=== PATIENT | female | born 1995 | race Caucasian/White ===

== ENCOUNTER 2017-05-26 22:37 | Emergency (ER) | payer SELFPAY ==
[2017-05-27] MEDS ORDERED: ONDANSETRON HCL INJ/PF 4 MG/2 ML SDV IV ONE (00:15)
[2017-05-27] MEDS ORDERED: NORMAL SALINE 1000 ML 1,000 ML IV ONE (00:15)
--- NOTE | 2017-05-27 00:24 | ER Document Report ---
ED General - General Chief Complaint: Abdominal Pain Stated Complaint: ABDOMINAL PAIN Time Seen by Provider: 05/27/17 00:05 TRAVEL OUTSIDE OF THE [place] IN LAST 30 DAYS: No - HPI Notes: Patient is a 21-year-old female no significant past medical history presents to the ED complaining of intermittent generalized abdominal pain, cramping, followed by nausea/vomiting 2 that began this evening. No hematemesis. Patient states that the pain does not radiate. Patient states that currently her pain has improved and it waxes and wanes. Patient states that she has had some loose stool accompanying her symptoms. Patient has been able to keep some water down, but has not tried to eat since dinner this evening. Patient states that nothing makes her pain worse or better. She denies any drug allergies. Denies any smoking or IV drug use. Denies any headache, fever, neck pain, URI, sore throat, chest pain, palpitations, syncope, cough, shortness of breath, wheeze, dyspnea, abdominal pain, nausea/vomiting/diarrhea, melena, hematochezia , vaginal discharge/odor/bleeding, pelvic cramping, urinary retention, dysuria, hematuria, loss of control of bowel or bladder, numbness/tingling, saddle anesthesia, muscle paralysis/weakness, or rash. - Related Data Allergies/Adverse Reactions: No Known Allergies Allergy (Unverified 05/26/17 22:39) Past Medical History - Social History Smoking Status: Never Smoker Frequency of alcohol use: None Family History: Reviewed & Not Pertinent Patient has suicidal ideation: No Patient has homicidal ideation: No Renal/ Medical History: Denies: Hx Peritoneal Dialysis Review of Systems - Review of Systems Notes: REVIEW OF SYSTEMS: CONSTITUTIONAL : Denies fever, chills, or sweats. Denies recent illness. EENT: Denies eye, ear, throat, or mouth pain or symptoms. Denies nasal or sinus congestion or discharge. Denies throat, tongue, or mouth swelling or difficulty swallowing. CARDIOVASCULAR: Denies chest pain. Denies palpitations or racing or irregular heart beat. Denies ankle edema. RESPIRATORY: Denies cough, cold, or chest congestion. Denies shortness of breath, difficulty breathing, or wheezing. GASTROINTESTINAL: see hpi GENITOURINARY: Denies difficulty urinating, painful urination, burning, frequency, blood in urine, or discharge. FEMALE GENITOURINARY: Denies vaginal bleeding, heavy or abnormal periods, irregular periods. Denies vaginal discharge or odor. MUSCULOSKELETAL: Denies back or neck pain or stiffness. Denies joint pain or swelling. SKIN: Denies rash, lesions or sores. NEUROLOGICAL: Denies confusion or altered mental status. Denies passing out or loss of consciousness. Denies dizziness or lightheadedness. Denies headache. Denies weakness or paralysis or loss of use of either side. Denies problems with gait or speech. Denies sensory loss, numbness, or tingling. Denies seizures. ALL OTHER SYSTEMS REVIEWED AND NEGATIVE. Dictation was performed using [employer] voice recognition software Physical Exam - Vital signs Vitals: Temp Pulse Resp BP Pulse Ox 98.3 F 82 20 150/82 H 100 05/26/17 23:03 05/26/17 23:03 05/26/17 23:03 05/26/17 23:03 05/26/17 23:03 Notes: PHYSICAL EXAMINATION: GENERAL: Well-appearing, well-nourished and in no acute distress. A&Ox4 LUNGS: Breath sounds clear to auscultation bilaterally and equal. No wheezes rales or rhonchi. HEART: Regular rate and rhythm without murmurs, rubs, gallops. ABDOMEN: Obese, Soft, nontender, nondistended abdomen. No guarding, no rebound. No masses appreciated. Normal bowel sounds present. No CVA tenderness bilaterally. Musculoskeletal: LE's b/l: FROM to passive/active. Strength 5+/5. Extremities: No cyanosis, clubbing, or edema b/l. Peripheral pulses 2+. Capillary refill less than 3 seconds. NEUROLOGICAL: Cranial nerves grossly intact. Normal speech, normal gait. Normal sensory, motor exams PSYCH: Normal mood, normal affect. SKIN: Warm, Dry, normal turgor, no rashes or lesions noted. Course - Re-evaluation Re-evalutation: 05/27/17 01:36 Patient is an afebrile, well-hydrated, 21-year-old female who presents to the ED with nausea/vomiting and intermittent abdominal cramping, suspect viral at this time. Vitals are stable. PE is otherwise unremarkable. Patient had a minimally elevated white count, but patient has been vomiting 2. Patient has not vomited while in the ED and is tolerating p.o. without any difficulties. Patient states that her symptoms have improved since arrival and she is feeling much better. Patient was given 1 L of normal saline. CMP, lipase, hcg otherwise unremarkable. UA showed wbc's and leuks, but pt is urinary asymptomatic so a culture is pending at this time. Low suspicion/risk for acute appendicitis, bowel obstruction, acute cholecystitis, acute cholangitis, perforated diverticulitis, incarcerated hernia, pancreatitis, perforated ulcer, peritonitis, sepsis, pelvic inflammatory disease, ectopic , tubo- ovarian abscess, ovarian torsion, or other systemic emergent condition at this time. Patient is aware that her condition can change from initial presentation and she needs to monitor symptoms closely and seek medical attention if any acute changes. Toradol given IV prior to discharge. Rx for zofran given. Conservative measures otherwise for symptoms. Recheck with your PCM in 3-5 days. Consider consult with a cribbing setter. Return to the ED with any worsening/concerning symptoms otherwise as reviewed in discharge. Patient is in agreement. - Vital Signs Vital signs: Temp Pulse Resp BP Pulse Ox 98.3 F 82 20 150/82 H 100 05/26/17 23:03 05/26/17 23:03 05/26/17 23:03 05/26/17 23:03 05/26/17 23:03 - Laboratory Result Diagrams: 05/27/17 00:44 05/27/17 00:44 Laboratory results interpreted by me: 05/27/17 05/27/17 05/27/17 00:09 00:44 00:44 WBC 11.6 H Seg Neutrophils % 84.1 H Lymphocytes % 7.2 L Absolute Neutrophils 9.7 H Glucose 123 H AST 75 H ALT 67 H Urine Ketones TRACE H Ur Leukocyte Esterase MODERATE H Discharge - Discharge Clinical Impression: Nausea and vomiting Qualifiers: Vomiting type: unspecified Vomiting Intractability: non-intractable Qualified Code(s): R11.2 - Nausea with vomiting, unspecified Unspecified abdominal pain Qualifiers: Abdominal location: generalized Qualified Code(s): R10.84 - Generalized abdominal pain Condition: Stable Disposition: HOME, SELF-CARE Instructions: Abdominal Pain ([facility]), Observation for Appendicitis ([facility]), Vomiting ([facility]), Antinausea Medication ([facility]) Additional Instructions: Maintain adequate fluid and food intake [place] diet ([employer] Bananas, rice, apples, toast, etc Zofran as needed tylenol if needed Monitor for any worsening symptoms Make sure you are staying hydrated enough to urinate and have normal BM's Recheck with your PCM in 3-5 days Consider consult with Gastroenterology for ongoing/worsening symptoms Return to the ED with any worsening symptoms and/or development of fever, headache, chest pain, palpitations, syncope, shortness of breath, trouble breathing, abdominal pain, n/v/d, blood in stool/urine, weakness, or other worsening symptoms that are concerning to you. Prescriptions: Ondansetron [Zofran Odt 4 mg Tablet] 1 - 2 tab PO Q4H PRN #15 tab.rapdis PRN Reason: For Nausea/Vomiting Forms: Elevated Blood Pressure Referrals: SRINIVASA CHILDERS MD [ACTIVE STAFF] - Follow up as needed
[2017-05-27 00:59] LABS: ABSOLUTE EOSINOPHILS # (AUTO) 0.1 10^3/uL (0.0-0.6); ABSOLUTE LYMPHOCYTES (AUTO) 0.8 10^3/uL (0.5-4.7); ABSOLUTE MONOCYTES (AUTO) 0.9 10^3/uL (0.1-1.4); ABSOLUTE NEUT (AUTO) 9.7 10^3/uL (1.7-8.2); BASOPHILS % (AUTO) 0.3 % (0-2); EOSINOPHILS % (AUTO) 0.7 % (0-6); HEMATOCRIT 42.4 % (36.0-47.0); HEMOGLOBIN 14.1 g/dL (12.0-15.5); LYMPHOCYTES % (AUTO) 7.2 % (13-45); MEAN CORPUSCULAR HEMOGLOBIN 29.3 pg (27.0-33.4); MEAN CORPUSCULAR HGB CONC 33.2 g/dL (32.0-36.0); MEAN CORPUSCULAR VOLUME 88 fl (80-97); MONOCYTES % (AUTO) 7.7 % (3-13); PLATELET COUNT 341 10^3/uL (150-450); RED CELL DISTRIBUTION WIDTH 12.7 % (11.5-14.0); SEGMENTED NEUTROPHILS % (AUTO) 84.1 % (42-78); TOTAL CELLS COUNTED % (AUTO) 100 %; WHITE BLOOD COUNT 11.6 10^3/uL (4.0-10.5)
[2017-05-27 01:12] LABS: APPEARANCE,URINE SLIGHTLY-CLOUDY; BILIRUBIN,URINE NEGATIVE (NEGATIVE); COLOR,URINE YELLOW; GLUCOSE, URINE NEGATIVE (NEGATIVE); KETONES,URINE TRACE mg/dL (NEGATIVE); LEUKOCYTE ESTERASE,URINE MODERATE (NEGATIVE); NITRITE,URINE NEGATIVE (NEGATIVE); PROTEIN,URINE NEGATIVE (NEGATIVE); URINE SPECIFIC GRAVITY 1.026; UROBILINOGEN,URINE NEGATIVE mg/dL (<2.0)
[2017-05-27 01:19] LABS: ALANINE AMINOTRANSFERASE 67 U/L (9-52); ALBUMIN 4.4 g/dL (3.5-5.0); ALKALINE PHOSPHATASE 84 U/L (38-126); ANION GAP 11 (5-19); ASPARTATE AMINO TRANSFERASE 75 U/L (14-36); BILIRUBIN,DIRECT 0.2 mg/dL (0.0-0.4); BILIRUBIN,TOTAL 0.5 mg/dL (0.2-1.3); BLOOD UREA NITROGEN 13 mg/dL (7-20); CALCIUM 9.6 mg/dL (8.4-10.2); CARBON DIOXIDE 28 mmol/L (22-30); CHLORIDE 103 mmol/L (98-107); GLUCOSE 123 mg/dL (75-110); LIPASE 85.2 U/L (23-300); SODIUM 141.6 mmol/L (137-145); TOTAL PROTEIN 7.4 g/dL (6.3-8.2)
[2017-05-27] MEDS ORDERED: KETOROLAC TROMETHAMINE INJ/PF 30 MG/1 ML SDV IV ONE (01:39)
[2017-05-27] MEDS ORDERED: ONDANSETRON ODT 4 MG TAB (6 TAB/ER DISP) PO PRN (01:53)
[2017-05-27 02:39] VITALS: BP 119/61
== END 2017-05-27 02:39 | disposition home or self-care (01) ==
LOC: ER 22:37
DX: R10.84 Generalized abdominal pain (principal); R11.2 Nausea with vomiting, unspecified
CPT/HCPCS: 99284; 96361; 96374; 96375; 36415; 87086; 83690; 85025; 81025; 80053; 81001; J1885; J2405; J7030

== ENCOUNTER 2017-05-27 04:06 | Emergency (ER) | payer SELFPAY ==
--- NOTE | 2017-05-27 04:32 | ER Document Report ---
ED General - General Chief Complaint: Abdominal Pain Stated Complaint: ABDOMINAL PAIN Time Seen by Provider: 05/27/17 04:24 TRAVEL OUTSIDE OF THE [place] IN LAST 30 DAYS: No - HPI Notes: Patient is a 21-year-old female who was just discharged by myself a few hours ago who returned to the ED complaining of having 3 more episodes of vomiting and a pink tinged loose stool while at home. Patient states that she did take one Zofran tablet that I sent her home with, but became concerned with the pink tinge bowel movement. Patient states that she did not have any pain or discomfort with the bowel movement. Patient states that she does continue to have a pressure feeling in her mid abdomen that is worse when she vomits, but then resolves. Patient states that the pain does not radiate. No other concerns or complaints. Denies any headache, fever, neck pain, URI, sore throat , chest pain, palpitations, syncope, cough, shortness of breath, wheeze, dyspnea , vaginal discharge/odor/bleeding, pelvic cramping, urinary retention, dysuria, hematuria, loss of control of bowel or bladder, numbness/tingling, saddle anesthesia, muscle paralysis/weakness, or rash. Note from a few hours ago: Patient is a 21-year-old female no significant past medical history presents to the ED complaining of intermittent generalized abdominal pain, cramping, followed by nausea/vomiting 2 that began this evening. No hematemesis. Patient states that the pain does not radiate. Patient states that currently her pain has improved and it waxes and wanes. Patient states that she has had some loose stool accompanying her symptoms. Patient has been able to keep some water down, but has not tried to eat since dinner this evening. Patient states that nothing makes her pain worse or better. She denies any drug allergies. Denies any smoking or IV drug use. Denies any headache, fever, neck pain, URI, sore throat, chest pain, palpitations, syncope, cough, shortness of breath, wheeze, dyspnea, melena, hematochezia, vaginal discharge/odor/bleeding, pelvic cramping, urinary retention, dysuria, hematuria, loss of control of bowel or bladder, numbness/tingling, saddle anesthesia, muscle paralysis/weakness, or rash. - Related Data Allergies/Adverse Reactions: No Known Allergies Allergy (Verified 05/27/17 04:08) Past Medical History - Social History Smoking Status: Never Smoker Family History: Reviewed & Not Pertinent Renal/ Medical History: Denies: Hx Peritoneal Dialysis Review of Systems - Review of Systems Notes: REVIEW OF SYSTEMS: CONSTITUTIONAL : Denies fever, chills, or sweats. Denies recent illness. EENT: Denies eye, ear, throat, or mouth pain or symptoms. Denies nasal or sinus congestion or discharge. Denies throat, tongue, or mouth swelling or difficulty swallowing. CARDIOVASCULAR: Denies chest pain. Denies palpitations or racing or irregular heart beat. Denies ankle edema. RESPIRATORY: Denies cough, cold, or chest congestion. Denies shortness of breath, difficulty breathing, or wheezing. GASTROINTESTINAL: see hpi GENITOURINARY: Denies difficulty urinating, painful urination, burning, frequency, blood in urine, or discharge. FEMALE GENITOURINARY: Denies vaginal bleeding, heavy or abnormal periods, irregular periods. Denies vaginal discharge or odor. MUSCULOSKELETAL: Denies back or neck pain or stiffness. Denies joint pain or swelling. SKIN: Denies rash, lesions or sores. NEUROLOGICAL: Denies passing out or loss of consciousness. Denies dizziness or lightheadedness. Denies headache. Denies problems with gait or speech. Denies sensory loss, numbness, or tingling. Denies seizures. ALL OTHER SYSTEMS REVIEWED AND NEGATIVE. Dictation was performed using [employer] voice recognition software Physical Exam - Vital signs Vitals: Temp Pulse Resp BP Pulse Ox 98.1 F 105 H 20 149/78 H 96 05/27/17 04:10 05/27/17 04:10 05/27/17 04:10 05/27/17 04:10 05/27/17 04:10 Notes: PHYSICAL EXAMINATION: Accompanied by female nurse GENERAL: Well-appearing, well-nourished and in no acute distress. Non-toxic appearing. appears comfortable and moving w/o difficulty. HEAD: Atraumatic, normocephalic. EYES: Pupils equal round and reactive to light, extraocular movements intact, sclera anicteric, conjunctiva are normal. ENT: Nares patent and without discharge. oropharynx clear without exudates. No tonsilar hypertrophy or erythema. Moist mucous membranes. NECK: Normal range of motion, supple without lymphadenopathy LUNGS: Breath sounds clear to auscultation bilaterally and equal. No wheezes rales or rhonchi. HEART: Regular rate and rhythm without murmurs, rubs, gallops. ABDOMEN: Soft, nontender, nondistended abdomen. No guarding, no rebound. No masses appreciated. Normal bowel sounds present. No CVA tenderness bilaterally. Non-tender at [place] point. Rectal: no hemorrhoids or fissures noted. Non-tender. Occult obtained. No fecal impaction. Musculoskeletal: FROM to passive/active. Strength 5+/5. Extremities: No cyanosis, clubbing, or edema b/l. Peripheral pulses 2+. Capillary refill less than 3 seconds. NEUROLOGICAL: Cranial nerves grossly intact. Normal speech, normal gait. Normal sensory, motor exams PSYCH: Normal mood, normal affect. SKIN: Warm, Dry, normal turgor, no rashes or lesions noted. Course - Re-evaluation Re-evalutation: 05/27/17 05:40 Patient is an afebrile, well-hydrated, 21-year-old female who presents the ED with gastroenteritis, suspect viral at this time. Vitals are stable. PE is otherwise unremarkable. Patient is nontoxic-appearing and is in no acute distress. 1/2L NS given today. Pt had 1 episode of vomiting and coughing here in the ED. Pt did not attempt to take the reglan. Per Dr. Reed, Haldol 5mg given IV. Occult test negative. Patient has a prescription for Zofran and was given a Zofran dispense pack from the ED. Patient's abdominal discomfort is nonspecific on history and on exam. I could not elicit any sharp tenderness, guarding, or rebound. Nontender at [place] point. Close observation recommended. Stool culture, ova/parasite pending. Recheck with PCM in 3-5 days. Consider consult gastroenterology. Return to the ED with any worsening/ concerning symptoms otherwise as reviewed in discharge. Patient is in agreement. Pt doing well at discharge, currently no pain, n/v. Pt is drowsy from the medication, assistance provided to their vehicle. Reviewed case with Dr. Reed as patient is a bounce-back: Dr. Reed agrees with assessment that this appears to be a viral illness and no other imaging or tests are warranted at this time. - Vital Signs Vital signs: Temp Pulse Resp BP Pulse Ox 98.1 F 105 H 20 149/78 H 96 05/27/17 04:10 05/27/17 04:10 05/27/17 04:10 05/27/17 04:10 05/27/17 04:10 Discharge - Discharge Clinical Impression: Gastroenteritis Condition: Stable Disposition: HOME, SELF-CARE Instructions: Abdominal Pain ([facility]), Gastroenteritis (adult) ([facility]), Observation for Appendicitis ([facility]), Vomiting ([facility]) Additional Instructions: Having nausea, vomiting, and diarrhea are typical in gastroenteritis (viral GI infections). Your stool culture, ova/parasite tests are pending and may take several days to complete up to 1 week. Maintain adequate fluid and food intake [place] diet ([employer] Bananas, rice, apples, toast, etc Zofran as needed tylenol if needed Monitor for any worsening symptoms Make sure you are staying hydrated enough to urinate and have normal BM's Recheck with your PCM in 3-5 days Consider consult with Gastroenterology for ongoing/worsening symptoms Return to the ED with any worsening symptoms and/or development of fever, headache, chest pain, palpitations, syncope, shortness of breath, trouble breathing, abdominal pain, worsening n/v/d, increased blood in stool/urine, weakness, or other worsening symptoms that are concerning to you. Forms: Elevated Blood Pressure, Follow-Up Laboratory Testing Referrals: SRINIVASA CHILDERS MD [ACTIVE STAFF] - Follow up in 3-5 days
[2017-05-27] MEDS ORDERED: METOCLOPRAMIDE HCL 10 MG TABLET PO ONE (04:58)
[2017-05-27] MEDS ORDERED: HALOPERIDOL LACTATE INJ 5 MG/1 ML VIAL IM ONE (05:15)
[2017-05-27] MEDS ORDERED: NORMAL SALINE 500 ML IV ONE (05:21)
[2017-05-27 05:50] VITALS: BP 138/74
== END 2017-05-27 05:49 | disposition home or self-care (01) ==
LOC: ER 04:06
DX: K52.9 Noninfective gastroenteritis and colitis, unspecified (principal)
CPT/HCPCS: 99284; 96372; 82272; J1630; J7040